=== PATIENT | female | born 1955 | race Caucasian/White ===

== ENCOUNTER 2020-07-01 21:05 | Emergency (ER) | payer MEDICARE ==
[~2020-07-01] VITALS: Ht 177.8 cm; Wt 65.0 kg
--- NOTE | 2020-07-01 22:26 | NUR ---
SPOKE WITH [facility] WHERE PATIENT LIVES , PER FACILITY STAFF PATIENT IS BASELINE AND NO COGNISCENT DEFICETS OBSERVED MD AWARE
[2020-07-02 00:30] VITALS: BP 120/69
== END 2020-07-02 00:32 | disposition home or self-care (01) ==
LOC: ER 21:08
DX: S02.2XXA Fracture of nasal bones, initial encounter for closed fracture (principal); R29.6 Repeated falls; Z88.0 Allergy status to penicillin; W01.0XXA Fall on same level from slipping, tripping and stumbling without subsequent striking against object, initial encounter; W01.198A Fall on same level from slipping, tripping and stumbling with subsequent striking against other object, initial encounter; Y93.01 Activity, walking, marching and hiking; Y92.098 Other place in other non-institutional residence as the place of occurrence of the external cause; Y99.8 Other external cause status
CPT/HCPCS: 70450; 70486; 72125; 99285